=== PATIENT | male | born 1975 | race African-American/Black ===

== ENCOUNTER 2017-09-02 16:11 | Emergency (ER) | payer BC, OTHER ==
[~2017-09-02] VITALS: Ht 172.7 cm; Wt 113.4 kg
[2017-09-02 16:45] VITALS: BP 168/95
[2017-09-02] MEDS ORDERED: KADIAN20 M1 PO (16:46)
[2017-09-02] MEDS ORDERED: DILAUDID8 MG PO (16:46)
[2017-09-02] MEDS ORDERED: GABAPENTIN300 MG ORAL (16:46)
--- NOTE | 2017-09-02 17:33 | Emergency Room Report ---
History of Present Illness General Chief Complaint: Altered Level of Consciousness Source: Patient Present Illness HPI Patient is a 42-year-old male brought in by EMS from [place] after increased altered level consciousness. The patient prior history of paraplegia and had been noted to be unconscious by bystanders and 911 was contacted. Patient markedly limited by patient's mental status. Allergies: Coded Allergies: PENICILLINS (Verified Allergy, Severe, 09/02/17) IODINE (Verified Allergy, Intermediate, Hives, 09/02/17) Patient History Past Medical History: see triage record Reviewed Nursing Documentation: PMH: Agreed, PSxH: Agreed Nursing Documentation-PMH Past Medical History: No History, Except For Hx Cardiac Problems: No - decubitus, t12 inclomplete paraplegia, r kidney removal, 24fr suprapubic Hx Gastrointestinal Problems: Yes - COLOSTOMY Review of Systems All Other Systems: limited - by mental status Physical Exam Vital Signs Date Time Temp Pulse Resp B/P (MAP) Pulse Ox O2 Delivery O2 Flow Rate FiO2 09/02/17 16:22 112 20 180/105 96 Room Air Sp02 EP Interpretation: reviewed, normal General Appearance: normal inspection, well appearing, no apparent distress, Chronically Ill Head: atraumatic ENT: normal ENT inspection, hearing grossly normal, normal voice Neck: normal inspection, full range of motion, supple, no bony tend Respiratory: normal inspection, lungs clear, normal breath sounds, no respiratory distress, no retraction, no wheezing Cardiovascular #1: regular rate, rhythm, no edema Gastrointestinal: normal inspection, normal bowel sounds, non tender, soft, no guarding, no hernia Genitourinary: no CVA tenderness Musculoskeletal: normal inspection, back normal Neurologic: normal inspection, alert, responsive, speech normal Psychiatric: normal inspection, judgement/insight normal, mood/affect normal Skin: normal inspection, normal color, no rash Medical Decision Making Diagnostic Impression: Primary Impression: Substance abuse Additional Impression: Abrasion of hand ER Course Patient presented for altered mental status. Differential diagnosis included but was not limited to ischemic stroke, subarachnoid hemorrhage, hypoglycemia, spinal cord injury, overdose, alcohol intoxication, neurodegenerative disorder , urinary tract infection, hypoxemia. Patient was noted to have history of chronic a urinary suprapubic catheter placement. CT head read by radiology showed no evidence of acute hemorrhage or CVA. The patient was noted to have some improvement in mental status and stated that he had used PCP earlier in the day. CPK was noted to be normal. The patient was noted to have elevated white blood count. Patient was advised to have a labs rechecked next one to 2 days. Patient's altered mental status was improved at the time of discharge. Patient was advised followup with his primary care physician for recheck in one to 2 days. He is advised to stop using drugs Labs Test 09/02/17 17:00 09/02/17 18:12 09/02/17 19:19 Urine Opiates Screen Positive (NEGATIVE) Urine Barbiturates Screen Negative (NEGATIVE) Phencyclidine (PCP) Screen Positive (NEGATIVE) Urine Amphetamines Screen Negative (NEGATIVE) Urine Benzodiazepines Screen Negative (NEGATIVE) Urine Cocaine Screen Negative (NEGATIVE) Urine Marijuana (THC) Screen Negative (NEGATIVE) Sodium Level 138 MMOL/L (136-145) Potassium Level 5.6 MMOL/L (3.5-5.1) Chloride Level 102 MMOL/L (98-107) Carbon Dioxide Level 26 MMOL/L (21-32) Anion Gap 10 mmol/L (5-15) Blood Urea Nitrogen 15 mg/dL (7-18) Creatinine 0.8 MG/DL (0.55-1.30) Estimat Glomerular Filtration Rate > 60 mL/min (>60) Glucose Level 90 MG/DL (74-106) Calcium Level 9.4 MG/DL (8.5-10.1) Total Bilirubin 0.8 MG/DL (0.2-1.0) Aspartate Amino Transf (AST/SGOT) 42 U/L (15-37) Alanine Aminotransferase (ALT/SGPT) 44 U/L (12-78) Alkaline Phosphatase 87 U/L (46-116) Total Creatine Kinase 154 U/L (26-308) Troponin I 0.000 ng/mL (0.000-0.056) Total Protein 8.8 G/DL (6.4-8.2) Albumin 4.3 G/DL (3.4-5.0) Globulin 4.5 g/dL Albumin/Globulin Ratio 1.0 (1.0-2.7) Salicylates Level 0.9 ug/mL (2.8-20) Acetaminophen Level < 2 MCG/ML (10-30) Serum Alcohol < 3 mg/dL White Blood Count 15.7 K/UL (4.8-10.8) Red Blood Count 6.78 M/UL (4.70-6.10) Hemoglobin 17.4 G/DL (14.2-18.0) Hematocrit 55.1 % (42.0-52.0) Mean Corpuscular Volume 81 FL (80-99) Mean Corpuscular Hemoglobin 25.6 PG (27.0-31.0) Mean Corpuscular Hemoglobin Concent 31.5 G/DL (32.0-36.0) Red Cell Distribution Width 13.5 % (11.6-14.8) Platelet Count 252 K/UL (150-450) Mean Platelet Volume 8.8 FL (6.5-10.1) Neutrophils (%) (Auto) 84.8 % (45.0-75.0) Lymphocytes (%) (Auto) 10.0 % (20.0-45.0) Monocytes (%) (Auto) 4.3 % (1.0-10.0) Eosinophils (%) (Auto) 0.0 % (0.0-3.0) Basophils (%) (Auto) 0.8 % (0.0-2.0) Last Vital Signs Date Time Temp Pulse Resp B/P (MAP) Pulse Ox O2 Delivery O2 Flow Rate FiO2 09/02/17 16:22 112 20 180/105 96 Room Air Status: improved Disposition: HOME, SELF-CARE Condition: Stable Scripts Bacitracin Zinc* (BACITRACIN ZINC*) 1 Each Packet 1 APPLIC TOPIC THREE TIMES A DAY, #20 PACKET Prov: Arnoldo Cohn 09/02/17 Referrals: NOT CHOSEN [facility]/,REFERRING (PCP) Arnoldo Cohn Sep 02, 2017 17:33
[2017-09-02 18:00] VITALS: BP 148/76
[2017-09-02] MEDS ORDERED: BACITRACIN ZIN1 EACH TOPIC (18:53)
[2017-09-02 19:03] LABS: ANION GAP 10 mmol/L (5-15); BLOOD UREA NITROGEN 15 mg/dL (7-18); CALCIUM 9.4 MG/DL (8.5-10.1); CARBON DIOXIDE 26 MMOL/L (21-32); CHLORIDE 102 MMOL/L (98-107); CREATININE 0.8 MG/DL (0.55-1.30); POTASSIUM 5.6 MMOL/L (3.5-5.1); SODIUM 138 MMOL/L (136-145)
[2017-09-02 19:07] VITALS: BP 155/85
[2017-09-02 19:08] LABS: ALANINE AMINOTRANSFERASE 44 U/L (12-78); ALBUMIN 4.3 G/DL (3.4-5.0); ALKALINE PHOSPHATASE 87 U/L (46-116); ASPARTATE AMINO TRANSFERASE 42 U/L (15-37); BILIRUBIN,TOTAL 0.8 MG/DL (0.2-1.0)
[2017-09-02 19:20] LABS: CREATINE KINASE 154 U/L (26-308)
[2017-09-02 19:37] LABS: BASOPHILS % (AUTO) 0.8 % (0.0-2.0); HEMATOCRIT 55.1 % (42.0-52.0); HEMOGLOBIN 17.4 G/DL (14.2-18.0); MEAN CORPUSCULAR VOLUME 81 FL (80-99); MONOCYTES % (AUTO) 4.3 % (1.0-10.0); NEUTROPHILS % (AUTO) 84.8 % (45.0-75.0); PLATELET COUNT 252 K/UL (150-450); RED BLOOD COUNT 6.78 M/UL (4.70-6.10); RED CELL DISTRIBUTION WIDTH 13.5 % (11.6-14.8); WHITE BLOOD COUNT 15.7 K/UL (4.8-10.8)
[2017-09-02 20:30] VITALS: BP 152/85
--- NOTE | 2017-09-03 09:55 | Diagnostic Imaging Report ---
Indication: Altered mental status Comparison: None Technique: Contiguous helical CT images through the brain was performed without intravenous contrast. Axial, coronal and sagittal reconstructions were reformatted. CT dose: Total DLP 1375 mGycm, CTDI volume 70.4 mGy Findings: There is no definite acute intracranial hemorrhage or infarct. No mass, mass effect or midline shift is identified. The left temporal pole shows mild hypodensity which may be artifactual versus acute/subacute ischemia. Followup as clinically indicated. Ventricles and sulci are within normal limits. No extra-axial fluid collections are seen. Bony calvarium is intact. Mastoid air cells and visualized paranasal sinuses are clear. Impression: No acute intracranial hemorrhage or skull fracture. Left temporal pole shows mild subtle hypodensity which may be artifactual versus acute/subacute ischemia. Followup as clinically indicated. The CT scanner at [facility] is accredited by the [employer] and the scans are performed using protocols designed to limit radiation exposure to as low as reasonably achievable to attain images of sufficient resolution adequate for diagnostic evaluation.
--- NOTE | 2017-09-03 09:55 | Diagnostic Imaging Report ---
Indication: Altered mental status Comparison: None Technique: Contiguous helical CT images through the brain was performed without intravenous contrast. Axial, coronal and sagittal reconstructions were reformatted. CT dose: Total DLP 1375 mGycm, CTDI volume 70.4 mGy Findings: There is no definite acute intracranial hemorrhage or infarct. No mass, mass effect or midline shift is identified. The left temporal pole shows mild hypodensity which may be artifactual versus acute/subacute ischemia. Followup as clinically indicated. Ventricles and sulci are within normal limits. No extra-axial fluid collections are seen. Bony calvarium is intact. Mastoid air cells and visualized paranasal sinuses are clear. Impression: No acute intracranial hemorrhage or skull fracture. Left temporal pole shows mild subtle hypodensity which may be artifactual versus acute/subacute ischemia. Followup as clinically indicated. The CT scanner at [facility] is accredited by the [employer] and the scans are performed using protocols designed to limit radiation exposure to as low as reasonably achievable to attain images of sufficient resolution adequate for diagnostic evaluation.
--- NOTE | 2017-09-11 16:10 | Cardiology Report ---
APPROVED REPORT EKG Measurement Heart [id number] Normal sinus rhythm Inferior infarct, age undetermined Cannot rule out Anterior infarct, age undetermined Abnormal ECG
--- NOTE | 2017-09-11 16:10 | Cardiology Report ---
APPROVED REPORT EKG Measurement Heart [id number] [id number] Normal sinus rhythm Inferior infarct, age undetermined Cannot rule out Anterior infarct, age undetermined Abnormal ECG
--- NOTE | 2017-09-11 16:10 | Cardiology Report ---
APPROVED REPORT EKG Measurement Heart [id number] 160P44 [id number] Normal sinus rhythm Inferior infarct, age undetermined Cannot rule out Anterior infarct, age undetermined Abnormal ECG
== END 2017-09-02 20:40 | disposition home or self-care (01) ==
LOC: EDBD 16:11 → MERGE 17:00 → EMR 17:00
DX: F19.10 Other psychoactive substance abuse, uncomplicated (principal); S60.519A Abrasion of unspecified hand, initial encounter; X58.XXXA Exposure to other specified factors, initial encounter; Y93.9 Activity, unspecified; Y99.9 Unspecified external cause status; G82.20 Paraplegia, unspecified; Z88.0 Allergy status to penicillin; Z88.8 Allergy status to other drugs, medicaments and biological substances; Z90.5 Acquired absence of kidney; Z93.3 Colostomy status; R41.82 Altered mental status, unspecified
CPT/HCPCS: 36415; 70450; 80053; 80307; 82550; 84484; 85025; 93005; 99284; G0480; 80329